=== PATIENT | female | born 1965 | race Caucasian/White ===

== ENCOUNTER 2018-09-21 11:09 | Emergency (ER) | payer BC, OTHER ==
[~2018-09-21] VITALS: Ht 162.6 cm; Wt 57.5 kg
--- NOTE | 2018-09-21 11:46 | NUR ---
PT RESTING QUIETLY ON BED, RESP EVEN & UNLABORED, SPEECH CLEAR, SKIN JAUNDICED W/D. STATES LAST NAME IS NOW REAGAN; WILL NOTIFY REGISTRATION.
--- NOTE | 2018-09-21 11:51 | NUR ---
LAST NAME CORRECTED; DR CHURCH NOTIFIED.
--- NOTE | 2018-09-21 11:52 | NUR ---
PT STATES SKIN COLOR CHANGED ABOUT A WEEK AGO. C/O NAUSEA, GENERAL ITCHINESS (NO HIVES/RASH NOTED). DENIES PAIN, VOMITING, DIARRHEA, CONSTIPATION. DENIES RENAL HX, NEW MEDS.
[2018-09-21] MEDS ORDERED: HYDR-3653 PO (11:55)
[2018-09-21] MEDS ORDERED: SODIUM CHLORIDE FLUSH 10ML SYR IVF ONE (12:00)
--- NOTE | 2018-09-21 12:10 | NUR ---
AMBULATORY TO & FROM BR W/OUT INCIDENT; GAIT STEADY. VOIDED URINE SPECIMEN PROVIDED: CLEAR, SHARON.
[2018-09-21 12:19] LABS: INTERNATIONAL NORMALIZED RATIO 0.97 (0.93-1.1); PROTHROMBIN TIME 10.3 Seconds (9.6-11.5)
[2018-09-21 12:22] LABS: CHLORIDE 104 mmol/L (98-107)
[2018-09-21 12:35] LABS: ALANINE AMINOTRANSFERASE 212 U/L (12-78); ALBUMIN 3.4 g/dL (3.4-5.0); ALKALINE PHOSPHATASE 566 U/L (45-117); ANION GAP 8 mmol/L (5-15); BILIRUBIN,TOTAL 12.8 mg/dL (0.2-1.0); CREATININE 0.73 mg/dL (0.55-1.02); TOTAL PROTEIN 6.7 g/dL (6.4-8.2)
[2018-09-21 12:36] LABS: ACETAMINOPHEN < 2 mcg/mL (10-30)
[2018-09-21 12:37] LABS: MD YES; MEAN CORPUSCULAR HEMOGLOBIN 32.7 pg (27.0-34.8); MEAN CORPUSCULAR HGB CONC 33.8 g/dL (32.4-35.8); MEAN CORPUSCULAR VOLUME 96.7 fL (80-100); MEAN PLATELET VOLUME 10.9 fL (7.4-10.4); PLATELET COUNT 298 x10^3/uL (130-400); RED BLOOD COUNT 4.35 x10^6/uL (3.82-5.3); RED CELL DISTRIBUTION WIDTH 14.4 % (9.6-15.2)
[2018-09-21 12:39] LABS: <PLATELET ESTIMATE> ADEQUATE; <RBC MORPHOLOGY> NORMAL; EOS#(MANUAL) 0.82 x10^3/uL (0.0-0.4); EOS% (MANUAL) 7 % (1-7); GIANT PLATELETS 1+; LARGE PLATELETS 1+; LYMPH#(MANUAL) 1.29 x10^3/uL (1-3.4); LYMPHS% (MANUAL) 11 % (22-44); MONOS#(MANUAL) 0.59 x10^3/uL (0.3-2.7); MONOS% (MANUAL) 5 % (2-9); SEG#(MANUAL) 9.01 x10^3/uL (1.8-6.8); SEGS% (MANUAL) 77 % (42-75)
[2018-09-21 12:43] LABS: MICROSCOPIC INDICATED
--- NOTE | 2018-09-21 12:53 | NUR ---
TO CT PER SRIDEVI.
[2018-09-21 12:57] LABS: CULTURE INDICATED? YES
[2018-09-21] MEDS ORDERED: OMNIPAQUE 350 MG/ML, 100ML BOTTLE ONE (13:09)
--- NOTE | 2018-09-21 14:53 | NUR ---
U/S AT BS. SPOUSE IN ROOM.
[2018-09-21 16:22] VITALS: BP 118/64
== END 2018-09-21 16:24 | disposition home or self-care (01) ==
LOC: ED 12:27
DX: E80.6 Other disorders of bilirubin metabolism (principal); B19.10 Unspecified viral hepatitis B without hepatic coma; R82.90 Unspecified abnormal findings in urine
CPT/HCPCS: 36415; 74177; 76700; 80053; 80074; 80307; 81001; 82140; 83605; 83690; 85025; 85610; 85730; 87086; 99284; Q9967

== ENCOUNTER 2019-04-27 15:03 | Emergency (ER) | payer OTHER ==
[~2019-04-27] VITALS: Ht 162.6 cm; Wt 55.2 kg
[2019-04-27 15:13] VITALS: BP 147/85
== END 2019-04-27 15:31 | disposition home or self-care (01) ==
LOC: ED 15:25
DX: Z02.9 Encounter for administrative examinations, unspecified (principal)

== ENCOUNTER 2019-04-27 15:56 | Outpatient (CLI) | payer BC | END 2019-04-27 23:59 | disposition home or self-care (01) | LOC: RAD 15:56 | PROVIDERS: ATTEND Pain Medicine Interventional Pain Medicine | DX: M25.531 Pain in right wrist (principal); W19.XXXA Unspecified fall, initial encounter; Y93.89 Activity, other specified; Y92.89 Other specified places as the place of occurrence of the external cause; Y99.8 Other external cause status ==

== ENCOUNTER 2019-09-22 14:43 | Outpatient (CLI) | payer BC, OTHER ==
[~2019-09-22 14:43] MED LIST: HYDR-3653 PO
== END 2019-09-22 23:59 | disposition home or self-care (01) ==
LOC: RAD 14:43
PROVIDERS: ATTEND Pain Medicine Interventional Pain Medicine
DX: M25.512 Pain in left shoulder (principal); M25.511 Pain in right shoulder